=== PATIENT | female | born 1990 | race Caucasian/White ===

== ENCOUNTER 2019-12-31 11:32 | Emergency (ER) | payer OTHER, SELFPAY ==
[2019-12-31 11:39] VITALS: BP 121/78; PULSE 85; RESP 20; TEMP 36.6; O2SAT 100
--- NOTE | 2019-12-31 11:48 | ED.GENADULT ---
HPI - General Adult General Chief complaint: Upper Respiratory Infection Stated complaint: CONGESTION/COUGH Time Seen by Provider: 12/31/19 11:51 Source: patient Mode of arrival: ambulatory History of Present Illness HPI narrative: 29-year-old female patient presents to the [facility] with complaints of cold symptoms for the past 2 to 3 days. Patient states she does have a history of asthma and she has been having a frequent cough. Patient states she has been using her rescue inhaler at home. Patient states that her most bothersome symptom is the cough and the chest congestion. Patient states she is also been waking up at night coughing. Patient states she just overall is not feeling well. Patient denies any fevers, ear pain, runny nose, stuffy nose or sore throat. Patient denies any chest pain at this time. Patient denies any nausea, vomiting or diarrhea. Related Data Home Medications Medication Instructions Recorded Confirmed albuterol sulfate [Ventolin HFA] 1 puff INHALATION QID PRN 12/31/19 12/31/19 Allergies Allergy/AdvReac Type Severity Reaction Status Date / Time No Known Allergies Allergy Verified 12/31/19 11:46 Review of Systems Review of Systems: Narrative: CONSTITUTIONAL: Denies fever, chills, or sweats. EYES: Denies visual changes, redness, or discharge. ENT: Denies rhinorrhea, congestion, sore throat, or otalgia. CARDIOVASCULAR: Denies chest pain, palpitations, or edema. RESPIRATORY: Positive cough with dyspnea. GASTROINTESTINAL: Denies abdominal pain, nausea, vomiting, or diarrhea. GENITOURINARY: Denies dysuria or hematuria. SKIN: Denies rash or itching. MUSCULOSKELETAL: Denies back pain, joint pain, or myalgia. NEUROLOGIC: Denies headache, numbness, or weakness. PSYCHIATRIC: Denies anxiety or depression. [facility] Family History Family History Father Hypertension Mother Family history of allergic disorder Other Cerebrovascular accident Diabetes mellitus Family history of arthritis Family history of cardiovascular disease Family history of malignant neoplasm Social History Social History Smoking status: Former smoker Smoking end date: 11/20/16 Alcohol intake: current Comments At the time of my signature I agree with nursing past medical history, surgical, social, and family history. There is no relevant family history pertinent to the presenting complaint. Exam Narrative: Exam Narrative: GENERAL: Well-appearing, well-nourished, and in no acute distress. HEAD: Normocephalic, atraumatic. No tenderness over frontal or maxillary sinuses on palpation EYES: PERRLA and EOMI. ENT: Nares with erythema and edema noted bilaterally, no rhinorrhea or epistaxis. Mucous membranes moist. Posterior pharynx with no erythema, tonsil enlargement, exudates or lesions present. Bilateral TMs are clear with no erythema or foreign bodies in the canal. NECK: Supple. No lymphadenopathy CHEST: Clear to auscultation. No respiratory distress. Patient able to talk in clear complete sentences. HEART: Regular rate and rhythm. No murmur heard. Normal peripheral pulses. ABDOMEN: Soft, nontender, nondistended, normal active bowel sounds. EXTREMITIES: Normal range of motion. No edema. SKIN: Warm, dry, no rash. NEURO: No focal deficits. Alert and oriented x3. Course Vital Signs Vital signs: Vital Signs Temperature 36.6 C 12/31/19 11:39 Pulse Rate 85 12/31/19 11:39 Respiratory Rate 12/31/19 11:39 Blood Pressure 121/78 12/31/19 11:39 Pulse Oximetry 100 12/31/19 11:39 Temperature 36.6 C 12/31/19 11:39 Pulse Rate 85 12/31/19 11:39 Respiratory Rate 12/31/19 11:39 Blood Pressure 121/78 12/31/19 11:39 Pulse Oximetry 100 12/31/19 11:39 Vital signs reviewed. Medical Decision Making Differential Diagnosis Differential Diagnosis: Differential diagnosis: Allergi
== END 2019-12-31 12:06 | disposition home or self-care (01) ==
PROVIDERS: Emergency Provider Nurse Practitioner Family
DX: J06.9 Acute upper respiratory infection, unspecified (principal); J45.901 Unspecified asthma with (acute) exacerbation
CPT/HCPCS: 87804; 99213; G0463

== ENCOUNTER 2020-01-22 10:35 | Emergency (ER) | payer OTHER, SELFPAY ==
--- NOTE | ~2020-01-22 | CT_ITS ---
EXAMINATION: CT abdomen pelvis w con DATE: 01/22/2020 12:47 INDICATION: Abdominal pain. TECHNIQUE: Computed tomography (CT) of the abdomen and pelvis was performed with 100 mL Omnipaque 350 intravenous contrast. Automated exposure control and iterative reconstruction technique were employe d. The dose-length product was 202.45 mGy-cm. COMPARISON: None. FINDINGS: The visualized portions of the lung bases demonstrate minimal atelectasis. No pleural effus ion. The heart size is normal. No pericardial effusion. There is mild pectus excavatum. The liver and gallbladder are normal. There is an 8 mm low-attenuation mass in the spleen, likely a benign mass abel ch as granulomatous disease. The pancreas and adrenal glands are normal. There are cysts in the kidne ys measuring up to 5 mm on the left. There is cortical thinning of the kidneys. There is a 1.2 cm cys t of the vulva. There are no dilated loops of bowel. The appendix is normal. There is a supraumbilica l ventral hernia containing fat. Fat stranding may be inflammation or scarring. There are changes of umbilical hernia repair. There are no pathologically enlarged lymph nodes. There is no free intraperi toneal fluid. 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 IMPRESSION: 1. Supraumbilical ventral hernia containing fat with fat stranding that may be inflammation or scarri ng. Reviewed, dictated and finalized at location A. S SUPPORT ENGINEER IMPRESSION: 1. Supraumbilical ventral hernia containing fat with fat stranding that may be inflammation or scarring.
--- NOTE | 2020-01-22 11:05 | ED.ABDPAIN ---
HPI - Abdominal Pain General Chief Complaint: Abdominal Pain Stated Complaint: abd pain Time Seen by Provider: 01/22/20 10:51 Source: patient Mode of arrival: ambulatory Limitations: no limitations History of Present Illness HPI narrative: Patient is a 29-year-old female who presents with periumbilical abdominal pain that is moderate to severe in nature patient had coughed today when the pain occurred patient with history of hernias in the past last of which were repaired by Dr. Kathleen here a year ago. Patient notes she had had some mild increase in pain after doing some yard work this week. Patient denies fever chills nausea vomiting does not take anything for her symptoms symptoms are worse with position and activity Related Data Home Medications Medication Instructions Recorded Confirmed albuterol sulfate [Ventolin HFA] 1 puff INHALATION QID PRN 12/31/19 12/31/19 Allergies Allergy/AdvReac Type Severity Reaction Status Date / Time No Known Allergies Allergy Verified 12/31/19 11:46 Review of Systems Review of Systems: All systems reviewed & are unremarkable except as noted in HPI and below PMFSH Surgical History Surgical History H/O hernia repair Social History Social History Smoking status: Former smoker Smoking end date: 11/20/16 Alcohol intake: current Exam Narrative: Exam Narrative: GENERAL: Well-appearing, well-nourished, and in no acute distress. HEAD: Normocephalic, atraumatic. EYES: PERRLA and EOMI. ENT: Nares clear, no rhinorrhea or epistaxis. Mucous membranes moist. Oropharynx without tonsillar hypertrophy exudate or other lesions. NECK: Supple. No adenopathy or masses. CHEST: Clear to auscultation. No respiratory distress. No wheezes rales or rhonchi HEART: Regular rate and rhythm. No murmur heard. Normal peripheral pulses. ABDOMEN: Soft, hernia and periumbilical region with tenderness to palpation, nondistended EXTREMITIES: Normal range of motion. No edema. SKIN: Warm, dry, no rash. NEURO: No focal deficits. Alert and oriented x3. PSYCH: Normal mood and affect. Course Course Emergency Course: Patient in the room aware of case findings treatment plan and diagnosis agreeing to follow-up as directed or to return if symptoms worsen or concerns were Consultations Consultation #1: Patient case reviewed with general surgery who notes he will follow the patient in clinic and that the patient can be safely discharged home Date: 01/22/20 Vital Signs Vital signs: Vital Signs Temperature 98.5 F 01/22/20 11:26 Respiratory Rate 16 01/22/20 11:26 Blood Pressure 118/76 01/22/20 11:26 Pulse Oximetry 99 01/22/20 11:26 Temperature 98.5 F 01/22/20 11:26 Respiratory Rate 16 01/22/20 11:26 Blood Pressure 118/76 01/22/20 11:26 Pulse Oximetry 99 01/22/20 11:26 MDM - Abdominal Pain MDM Narrative Medical decision making narrative: Patient in the room aware of case findings treatment plan diagnosis recommendations of general surgery agreeing to follow-up in clinic as directed also provided with reasons to return Lab Data Result diagrams: 01/22/20 11:22 01/22/20 11:22 Labs: Lab Results 01/22/20 01/22/20 01/22/20 Range/Units 11:22 11:22 11:22 WBC 6.5 (4.5-10.0) K/mm3 RBC 4.80 (4.2-5.4) M/mm3 Hgb 13.8 (12.0-15.0) g/dL Hct 41.3 (37.0-47.0) % MCV 86.0 (80-100) fl MCH 28.8 (26-34) pg MCHC 33.4 (32-36) g/dl RDW 13.6 (11.5-14.5) % Plt Count 230 (150-375) k/mm3 MPV 11.2 H (7.4-10.4) fl Immature Gran % (Auto) 0.5 (0-0.5) % Neut % (Auto) 61.9 (45.5-73.1) % Lymph % (Auto) 28.9 (18.3-44.2) % [place] % (Auto) 7.8 (2.6-8.5) % Eos % (Auto) 0.6 (0-4.4) % Baso % (Auto) 0.3 (0.2-1.2) % Lymph # (Auto) 1.89 (0.9-3.2) K/mm3 Deuel # (Auto) 0.5 (0.1-0.6)
[2020-01-22 11:26] VITALS: BP 118/76; RESP 16; TEMP 36.9; O2SAT 99
[2020-01-22 11:30] LABS: Basophils Percent Auto 0.3 % (0.2-1.2); Eosinophils Percent Auto 0.6 % (0-4.4); Hematocrit 41.3 % (37.0-47.0); Hemoglobin 13.8 g/dL (12.0-15.0); Immature Granulocyte Absolute 0.03 K/mm3 (0.00-0.031); Immature Granulocyte Percent A 0.5 % (0-0.5); Lymphocytes Absolute Auto 1.89 K/mm3 (0.9-3.2); Lymphocytes Percent Auto 28.9 % (18.3-44.2); Mean Corpuscular HGB Conc 33.4 g/dl (32-36); Mean Corpuscular Hemoglobin 28.8 pg (26-34); Mean Platelet Volume 11.2 fl (7.4-10.4); Monocytes Absolute Auto 0.5 K/mm3 (0.1-0.6); Monocytes Percent Auto 7.8 % (2.6-8.5); Neutrophils Percent Auto 61.9 % (45.5-73.1); Platelet Count Result 230 k/mm3 (150-375); Red Cell Distribution Width 13.6 % (11.5-14.5); White Blood Count 6.5 K/mm3 (4.5-10.0)
[2020-01-22] MEDS: ONDANSETRON INJ 4 MG/2 ML VIAL IV PUSH (11:42)
[2020-01-22] MEDS: HYDROMORPHONE HCL 1 MG/ML INJ IV PUSH (11:43)
[2020-01-22] MEDS: SODIUM CHLORIDE 0.9% IV 1,000 ML 999 ML IV CONT (11:43)
[2020-01-22 11:44] LABS: Alanine Aminotransferase 18 U/L (4-35); Albumin Level 4.6 g/dL (3.5-5.1); Alkaline Phosphatase 54 U/L (38-126); Aspartate Amino Transferase 23 U/L (14-36); Bilirubin,Total 0.5 mg/dL (0.2-1.3); Blood Urea Nitrogen 9 mg/dL (7-17); Calcium 9.5 mg/dL (8.4-10.2); Carbon Dioxide 26 mmol/L (22-30); Chloride 105 mmol/L (98-107); Estimated Glomerular Filt Rate > 60; Glucose 88 mg/dL (65-105); Lipase 55 U/L (23-300); Sodium 138 mmol/L (137-145)
[2020-01-22 11:45] LABS: Lactic Acid Reflex 1.2 mmol/L (0.7-2.1)
[2020-01-22 11:54] LABS: Add Urine Microscopic? NO; Appearance Urine Clear (Clear); Bilirubin Urine Negative (Negative); Blood Urine Negative (Negative); Color Urine Straw (Yellow); Glucose Urine UA Negative (Negative); Ketones Urine Negative (Negative); Leukocyte Esterase Ur Negative LEU/UL (Negative); Nitrate Urine Negative (Negative); Protein Urine Negative (Negative); Specific Grav Ur 1.008 (1.001-1.035); Urobilinogen Urine Negative mg/dL (<2.0)
[2020-01-22] MEDS: MORPHINE SULFATE 4 MG/ML INJ IV PUSH (12:21)
[2020-01-22] MEDS: KETOROLAC 30 MG/ML VIAL (*BKC) IV PUSH (13:30)
[2020-01-22 14:08] VITALS: BP 118/85; PULSE 76; RESP 16; O2SAT 96
== END 2020-01-22 14:12 | disposition home or self-care (01) ==
PROVIDERS: Emergency Medicine Emergency Medical Services; Emergency Provider Emergency Medicine
DX: K43.9 Ventral hernia without obstruction or gangrene (principal)
CPT/HCPCS: 36415; 74177; 80053; 81003; 81025; 83605; 83690; 85025; 96361; 96374; 96375; 99284; J1170; J1885; J2270; J2405; J3360; J7030; Q9967

== ENCOUNTER 2020-01-28 01:10 | Day surgery (SDC) | payer OTHER, SELFPAY ==
[2020-01-27 10:57] VITALS: BMI 24.4
[2020-01-28] VITALS (9 sets, daily range): BP systolic 98–136; BP diastolic 53–79; PULSE 61–86; RESP 12–18; TEMP 36.4–36.8; O2SAT 96–100
--- NOTE | 2020-01-28 11:28 | WPDHPUPDATE1 ---
History and Physical Update Update Date/Time: 01/28/20 11:28 History and Physical has been reviewed, including an updated exam of the patient. There are NO changes in the patient's condition. Risks, benefits, and alternatives have been discussed and questions answered. Patient agrees to proceed with procedure.
[2020-01-28] MEDS: LACTATED RINGERS 1,000 ML 30 ML IV CONT ×2 (11:30→14:33)
--- NOTE | 2020-01-28 12:36 | WPDANESEPPF ---
Anes - Initial Pre Proc Eval Procedure: Operation Date: 01/28/20 13:00 Proposed Procedures p Repair Recurrent Incarcerated Ventral Hernia With Mesh - Monty Evans MD Date/Time: 01/28/20 12:36 Surgeon: Monty Evans MD Pre Op Diagnosis: Recurrent Incarcerated Ventral Hernia Patient Data Age: 29 Gender: F Height: 5 ft Weight: 56.5 kg Allergies Allergy/AdvReac Type Severity Reaction Status Date / Time No Known Allergies Allergy Verified 01/28/20 11:47 Home Medications Medication Instructions Recorded Confirmed Type albuterol sulfate [Ventolin HFA] 1 puff INHALATION QID PRN 12/31/19 01/28/20 History ibuprofen [IBU] 600 mg PO Q6H PRN #10 tablet 01/22/20 01/28/20 Rx cetirizine [Zyrtec] 10 mg PO DAILY PRN 01/27/20 01/28/20 History fluticasone propionate [Flonase 1 spray NASAL DAILY PRN 01/27/20 01/28/20 History Allergy Relief] multivitamin 1 tablet PO DAILY 01/27/20 01/28/20 History 21-iron fu-folic acid 1 tablet PO DAILY 01/27/20 01/28/20 History [ Complete] Patient hx anesthesia problems: none Family hx anesthesia problems: none PMFSH Past Medical History Medical History (Updated 01/28/20 @ 12:35 by Patel Whiting MD) Anxiety Asthma Depression Surgical History Surgical History (Updated 01/27/20 @ 09:[address] [facility]) H/O hernia repair umbilical 2018 H/O removal of cyst 4 years ago Social History Social History Smoking status: Former smoker Smoking end date: 11/20/16 Alcohol intake: current Anes - Eval Final PreProcedure Day of Procedure 01/28/20 12:36 Patient weight: normal Heart: regular rate and rhythm Lungs: clear to auscultation Airway: Mallampati scale class II Neurological: alert and oriented Last oral intake: >/= 8 hours ASA classification: II Emergent: no Anesthetic plan: proceed Anesthesia type and monitoring: general LMA and standard monitoring Informed Consent: The patient's anesthetic plan and its attendant risks and benefits were discussed with the patient/family/POA. Questions were solicited and answers provided to the satisfaction of the patient/family/POA.
[2020-01-28] MEDS: ceFAZolin 2 GM/D5W 50 ML 2 GM/50 ML BAG IVPB (13:33)
[2020-01-28] MEDS: KETOROLAC 30 MG/ML VIAL (*BKC) IV PUSH (14:01)
--- NOTE | 2020-01-28 15:03 | P.OP_ITS ---
Procedure Note - Detailed Date of procedure: 01/28/20 Pre-op diagnosis: Recurrent Incarcerated Ventral Hernia Incarcerated recurrent ventral hernia Post-op diagnosis: same Procedure performed: Repair recurrent incarcerated ventral hernia with 6.6 cm Parietex hernia mesh system Description of procedure: Patient was taken to the operating room and IV sedation was administered. Prep and drape was carried out. The proposed incision in the midline over the incarcerated hernia was marked on the skin. The incision was just above the umbilicus. Local anesthetic was infiltrated into the skin and the deeper subcutaneous tissues. Incision was made and dissection was carried down through the skin and to the hernia sac. The sac was then dissected free from the surrounding subcutaneous tissues. It was dissected down to its neck. Additional local anesthetic was infiltrated into the neck and the fascia surrounding the neck of the hernia sac. The sac was then amputated at its neck. The subcutaneous was undermined around the hernia defect. Additional local was infiltrated around the fascia. I placed a finger inside the hernia defect and checked for any abdominal wall adhesions in the area. None were found. No other hernias were noted. I did not palpate any other mesh either. A 6.6 cm Parietex chitina was chosen. It was folded and placed in the defect. Once it symmetrically covered the defect, I placed cranial and caudal transfascial sutures of 0 Ethibond. These sutures were placed in such a fashion that, when tied, they would advance the edges of the hernia defect towards 1 another. These sutures were tied and had the desired effect. I then closed the hernia defect with [id number] mattress sutures of 0 Ethibond. The repair looked quite satisfactory. I then infiltrated additional local all around the areas of the repair. The umbilical skin was tacked to the fascia with 3 0 Vicryl suture. The subcutaneous was closed with 3 0 Vicryl. Subcuticular inte rrupted 4 O Vicryl skin stitches were placed. The skin was then closed with running 4 0 Monocryl subcuticular suture. Wound was dressed with Exofin surgical adhesive. The patient was awakened and taken to recovery in good condition. Counts were correct x2. Implants: 6.6 cm Parietex hernia mesh Anesthesia: MAC and local (0.5% Marcaine with Exparel) Surgeon: Monty Evans MD Investigative Agent: Smiley Verdu ROPE MACHINE SETTER Estimated blood loss (mL): 5 Drains: No Packing: No Pathology: none sent Complications: None Condition: stable Disposition: same day Findings: 22 millimeter hernia defect oriented transversely
[2020-01-28] MEDS: ONDANSETRON INJ 4 MG/2 ML VIAL IV PUSH (15:15)
[2020-01-28] MEDS: SCOPOLAMINE 1.5 MG PATCH TRANSDERM (16:14)
== END 2020-01-28 17:05 | disposition home or self-care (01) ==
PROVIDERS: Visit Provider Surgery
PROC: 0WQF0ZZ Repair Abdominal Wall, Open Approach (ICD-10-PCS; CPT 49566; principal; 2020-01-28 13:00)
DX: K43.0 Incisional hernia with obstruction, without gangrene (principal); J45.909 Unspecified asthma, uncomplicated; F41.8 Other specified anxiety disorders; Z87.891 Personal history of nicotine dependence
CPT/HCPCS: 49566; 49568; A9270; C1781; C9290; J0690; J1100; J1200; J1885; J2250; J2405; J2704; J3010; J7120

== ENCOUNTER 2021-05-20 06:54 | Inpatient (IN) | payer OTHER, BC, SELFPAY ==
[2021-05-20] VITALS (67 sets, daily range): BP systolic 102–135; BP diastolic 57–108; PULSE 61–96; RESP 16–18; TEMP 36.4–37.1; O2SAT 95–100; BMI 26.9
[2021-05-20] MEDS: LACTATED RINGERS 1,000 ML 125 ML IV CONT ×2 (07:38→10:15)
[2021-05-20] MEDS: OXYTOCIN 30 UNITS/NS 500 ML 30 UNITS/500 ML BAG IV CONT (07:39)
--- NOTE | 2021-05-20 07:41 | PM.IMHP ---
H&P: HPI History of Present Illness Date/Time: 05/20/21 07:41 This patient is a 31-year-old 2 para 1001 at 39 weeks gestation who presents for elective induction. She did have a growth concern. She had rapid drop in her estimated weight over an 8 week. From 45th percentile to the 15th percentile. She has no complaints. She denies any loss of fluid, vaginal bleeding, contractions. She denies any nausea, vomiting, fever, chills. She denies any chest pain or shortness of breath. Chief Complaint: term Review of Systems Constitutional: Constitutional: Reports no additional constitutional complaints, Denies fatigue, Denies headache(s), Denies lethargy and Denies weakness Eyes: Eyes: Reports no additional eye complaints, Denies blurry vision and Denies photophobia ENT: Reports as per HPI, Denies headache(s) and Denies neck pain Cardiovascular: Cardiovascular: Denies chest pain, Denies diaphoresis, Denies leg edema, Denies palpitations and Denies dyspnea Respiratory: Respiratory: Denies hemoptysis, Denies dyspnea and Denies wheezing Gastrointestinal: Gastrointestinal: Denies abdominal pain, Denies melena, Denies bloating, Denies hematochezia, Denies nausea and Denies vomiting Genitourinary: Genitourinary: Reports no additional female genitourinary complaints Musculoskeletal: Musculoskeletal: Denies joint swelling, Denies neck pain, Denies numbness and Denies stiffness Neurologic: Denies Abnormal speech present, Denies confusion, Denies headache(s), Denies numbness and Denies weakness Psychiatric: Psychiatric: Denies anxiety, Denies confusion, Denies depression, Denies homicidal ideation and Denies suicidal ideation Endocrine: Endocrine: Denies fatigue and Denies palpitations Allergic/Immunologic: Allergic/Immunologic: Denies wheezing [facility] Family History Family History (Updated 04/30/21 @ 15:32 by Ephraim Ribera RN) Father Hypertension Social History Social History Substance use: never Gender identity (if verbalized by the patient): Female Spiritual care concerns: No Meds Home Medications and Allergies Home Medications Medication Instructions Recorded Confirmed Type PNV cmb#95-ferrous fumarate-FA 1 tablet PO DAILY 04/30/21 04/30/21 History [] albuterol mcg INHALATION 04/30/21 History cholecalciferol (vitamin D3) 50 mcg PO DAILY 04/30/21 04/30/21 History [Vitamin D3] Allergies Allergy/AdvReac Type Severity Reaction Status Date / Time No Known Allergies Allergy Verified 04/30/21 15:29 Vital Signs Vital Signs - 24 hr 05/20/21 07:30 Pulse Rate 92 Blood Pressure 117/88 Exam Const: General: healthy appearing, comfortable and no acute distress; No confusion Orientation/consciousness: No confusion Eyes: Direct Ophthalmoscopy: No photophobia Resp: Auscultation: clear to auscultation bilaterally, no rales, no rhonchi and no wheezes Cardio: Rate: regular rate Heart sounds: no click, no murmurs and no rubs GI: Inspection: non-distended GI Palp: No abdominal tenderness Auscultation: normal bowel sounds : Manual OB Exam: dilated 2 cm, effaced 50% and station -2 Amniotic Fluid: clear Other: A ROM-clear Neuro: General: No confusion Speech: No Abnormal speech present Extrem: General: normal to inspection, no pedal edema and no calf tenderness Assessment and Plan Assessment and plan (1) Term : Code(s): Z34.90 - Encounter for supervision of normal , unspecified, unspecified trimester Status: Acute (2) growth abnormality: Status: Acute Assessment and Plan: this patient is a 31-year-old female who presents for induction of labor at term. She has a multiple. She had a change in the growth. It slowed from 40th percentile to 15th percentile over a week. Artificial rupture of membranes was performed. She has a favorable cervix. Will begin Pitocin. External monitoring and
[2021-05-20 07:43] LABS: Basophils Percent Auto 0.2 % (0.2-1.2); Eosinophils Percent Auto 0.4 % (0-4.4); Hematocrit 37.8 % (37.0-47.0); Hemoglobin 12.3 g/dL (12.0-15.0); Immature Granulocyte Absolute 0.05 K/mm3 (0.00-0.031); Immature Granulocyte Percent A 0.6 % (0-0.5); Lymphocytes Absolute Auto 1.95 K/mm3 (0.9-3.2); Lymphocytes Percent Auto 22.9 % (18.3-44.2); Mean Corpuscular HGB Conc 32.5 g/dl (32-36); Mean Corpuscular Hemoglobin 26.9 pg (26-34); Mean Corpuscular Volume 82.7 fl (80-100); Mean Platelet Volume 11.9 fl (7.4-10.4); Monocytes Absolute Auto 0.6 K/mm3 (0.1-0.6); Neutrophils Absolute Auto 5.9 K/mm3 (1.3-6.7); Neutrophils Percent Auto 68.9 % (45.5-73.1); Platelet Count Result 209 k/mm3 (150-375); Red Blood Count 4.57 M/mm3 (4.2-5.4); Red Cell Distribution Width 14.1 % (11.5-14.5); White Blood Count 8.5 K/mm3 (4.5-10.0)
--- NOTE | 2021-05-20 07:54 | LDADM ---
This patient, Katie Qureshi, was admitted to Labor/Delivery/Recovery 109 on 05/20/21 at 06:54. Plans for labor, pain management and were discussed with patient. Patient/family oriented to hospital policies and general routines including ID bracelet, bed and alarms, visiting hours, pain management, procedures, bathroom and other care routines, personal items, smoking policy, room service/diet and guest tray routines, infant security routines, and visiting hours. Patient/Family are encouraged to report perceived risks to care and to ask questions if they do not understand what they are told or what they should do. See OBIX for further documentation.
--- NOTE | 2021-05-20 08:52 | WPDANESEPP ---
Anes - Eval Pre Procedure Procedure: labor epidural Date/Time: 05/20/21 08:52 Pre Op Diagnosis: Induction of Labor Patient Data Age: 31 Gender: F Height: 1.52 m Weight: 62.5 kg Last Vital Signs Pulse 84 05/20/21 08:30 BP 116/76 05/20/21 08:30 Allergies Allergy/AdvReac Type Severity Reaction Status Date / Time No Known Allergies Allergy Verified 04/30/21 15:29 Home Medications Medication Instructions Recorded Confirmed Type PNV cmb#95-ferrous fumarate-FA 1 tablet PO DAILY 04/30/21 04/30/21 History [] albuterol 90 mcg INHALATION PRN PRN 04/30/21 05/20/21 History cholecalciferol (vitamin D3) 50 mcg PO DAILY 04/30/21 04/30/21 History [Vitamin D3] Laboratory Tests 05/20/21 05/20/21 07:21 07:21 WBC 8.5 K/mm3 K/mm3 (4.5-10.0) RBC 4.57 M/mm3 M/mm3 (4.2-5.4) Hgb 12.3 g/dL g/dL (12.0-15.0) Hct 37.8 % % (37.0-47.0) MCV 82.7 fl fl (80-100) MCH 26.9 pg pg (26-34) MCHC 32.5 g/dl g/dl (32-36) RDW 14.1 % % (11.5-14.5) Plt Count 209 k/mm3 k/mm3 (150-375) MPV 11.9 fl H fl (7.4-10.4) Immature Gran % (Auto) 0.6 % H % (0-0.5) Neut % (Auto) 68.9 % % (45.5-73.1) Lymph % (Auto) 22.9 % % (18.3-44.2) [place] % (Auto) 7.0 % % (2.6-8.5) Eos % (Auto) 0.4 % % (0-4.4) Baso % (Auto) 0.2 % % (0.2-1.2) Lymph # (Auto) 1.95 K/mm3 K/mm3 (0.9-3.2) [place] # (Auto) 0.6 K/mm3 K/mm3 (0.1-0.6) Eos # (Auto) 0.0 K/mm3 K/mm3 (0-0.3) Baso # (Auto) 0.0 K/mm3 K/mm3 (0.0-0.1) Abs Immat Gran (auto) 0.05 K/mm3 H K/mm3 (0.00-0.031) Absolute Neuts (auto) 5.9 K/mm3 K/mm3 (1.3-6.7) Absolute Nucleated RBC 0.0 K/mm3 K/mm3 (0.0-0.012) Nucleated RBC % 0.0 % % (0.0-0.2) RPR Pending Patient hx anesthesia problems: none Family hx anesthesia problems: none PMFSH Family History Family History Father Hypertension Social History Social History Smoking status: Never smoker Substance use: never Gender identity (if verbalized by the patient): Female Spiritual care concerns: No Exam Day of Procedure 05/20/21 08:52 Patient weight: normal Heart: regular rate and rhythm Lungs: clear to auscultation Airway: Mallampati scale class II Neurological: alert and oriented
[2021-05-20 09:22] LABS: Rapid Plasma Reagin Non-Reactive (NonReactive)
--- NOTE | 2021-05-20 12:57 | PM.OBPRVD ---
OB - Delivery Note Procedure Delivery date: 05/20/21 Intrapartal events: None Induction method: AROM and per pitocin protocol Delivery monitor: external FHT and external uterine Route of delivery: Laceration Description: None Quantitative Blood Loss (ml): 150 Anesthesia type: Epidural Disposition: floor [facility] Baby Date of : 05/20/21 Time of : 12:30 Weeks of gestation at delivery: 39 Weight (pounds): 6 Weight (ounces): 9 score one minute: 9 score five minutes: 9
[2021-05-20] MEDS: OXYTOCIN 30 UNITS/NS 500 ML 30 UNITS/500 ML BAG 125 UNITS IV CONT (13:10)
[2021-05-20 15:01] LABS: Amphetamine Screen Urine Negative (Negative); Barbiturate Screen Urine Negative (Negative); Benzodiazepines Screen Urine Negative (Negative); Cannabinoid Screen Urine Negative (Negative); Cocaine Screen Urine Negative (Negative); Methadone Screen Urine Negative (Negative); Opiate Screen Urine Negative (Negative); Phencyclidine Screen Urine Negative (Negative)
--- NOTE | 2021-05-20 15:38 | PC.NURSE ---
PT arrived on unit via wheelchair accompanied by both spouse and . PT transferred to bed without difficulty. PT oriented to room 281 and surrounding area. PT introductions made and plan of care discussed per post , pain management, breast feeding, daily care activities. PT and spouse recipients of such instructions. No barriers to learning identified. PT receives instructions one to one discussion, demonstration, and mom baby care guide book. PT verbalized understanding of such instructions and welcome packet reviewed and discussed.
[2021-05-20] MEDS: DOCUSATE SODIUM 100 MG CAPSULE PO (18:01)
[2021-05-20] MEDS: LANOLIN (LANSINOH) 7.5 GM CREAM 1 APPLIC TOPICAL (18:01)
[2021-05-20] MEDS: IBUPROFEN 600 MG TABLET PO (18:01)
[2021-05-20] MEDS: ACETAMINOPHEN 325 MG TABLET 650 MG PO (23:26)
[2021-05-21 00:20] VITALS: BP 110/65; PULSE 85; RESP 16; TEMP 36.8; O2SAT 98
[2021-05-21 04:30] VITALS: BP 126/88; PULSE 74; RESP 16; TEMP 36.8; O2SAT 99
[2021-05-21] MEDS: IBUPROFEN 600 MG TABLET PO ×2 (04:50→11:42)
[2021-05-21 05:11] LABS: Hematocrit 33.1 % (37.0-47.0); Hemoglobin 10.6 g/dL (12.0-15.0)
[2021-05-21 07:00] VITALS: BP 125/78; PULSE 100; RESP 18; TEMP 36.8
--- NOTE | 2021-05-21 07:53 | P.PNOB_ITS ---
OB - PN: Subj Subjective Date/time seen: 05/21/21 07:53 Patient comments: no complaints baby status: doing well OB - PN: Obj Data Labs CBC & Chem 7: 05/21/21 04:47 Labs: Laboratory Results - last 24 hr 05/20/21 05/20/21 05/20/21 07:21 07:21 14:24 Hgb Hct Urine Opiates Screen Negative Urine Methadone Screen Negative Ur Barbiturates Screen Negative Ur Phencyclidine Scrn Negative Ur Amphetamine Screen Negative U Benzodiazepines Scrn Negative Urine Cocaine Screen Negative U Cannabinoids Screen Negative RPR Non-reactive Blood Type O Positive Antibody Screen Negative 05/21/21 04:47 Hgb 10.6 L Hct 33.1 L Urine Opiates Screen Urine Methadone Screen Ur Barbiturates Screen Ur Phencyclidine Scrn Ur Amphetamine Screen U Benzodiazepines Scrn Urine Cocaine Screen U Cannabinoids Screen RPR Blood Type Antibody Screen OB - PN A/P Plan day: 1 Plan: routine care Time Spent With Patient Time: Total time spent is greater than 50% in coordination of care (as do cumented) at patient's floor/unit and/or counseling patient: Review of Systems Review of Systems: All systems reviewed & are unremarkable except as noted in HPI and below Exam Const: General: cooperative Psych: Affect: normal affect Attitude: cooperative Thought process: Normal thought process present Thought content: Yes Normal thought content present Insight: Good insight present (Psych) Judgement: Good judgement present (Psych)
--- NOTE | 2021-05-21 08:00 | WPDANLDPN2 ---
Anes-Prog Note L&D Date/Time: 05/21/21 08:00 Comfortable throughout: labor Neuraxial method: epidural Epidural/Spinal procedure site: clean & non-tender Neuro status: Neuro function grossly intact. Cardiovascular status: normal Respiratory status: normal Airway patency: baseline Mental status: baseline Post-Op hydration status: normal Vital Signs: Last Vital Signs Temp 98.3 F 05/21/21 04:30 Pulse 74 05/21/21 04:30 Resp 16 05/21/21 04:30 BP 126/88 05/21/21 04:30 Pulse Ox 99 05/21/21 04:30 Pain score (VAS): 0 I/O: Intake & Output 05/20/21 05/21/21 05/21/21 23:59 07:59 15:59 Intake Total 500 Balance 500 Post-procedural complaints: none Patient feedback: Patient satisfied with anesthetic care.
[2021-05-21] MEDS: ACETAMINOPHEN 325 MG TABLET 650 MG PO (08:12)
[2021-05-21] MEDS: MULTIVIT/MIN/PREN/FOL AC/IRON TABLET 1 TAB PO (08:12)
--- NOTE | 2021-05-21 08:15 | PC.NURSE ---
Consulted with patient, Mother verbalizes she is able to independently latch infant with appropriate positioning/alignment. She denies any nipple discomfort, is feeding as required and waking infant to feed if needed. Reviewed infant feeding cues, frequencies, duration of feedings, feeding elimination flow sheet, and signs of adequate intake. Mother reports infant will be under bili lights. Requested mother call out for observation of feeding. Mother reports is feeding without difficulties or discomfort.
[2021-05-21 11:40] VITALS: BP 111/72; PULSE 86; RESP 18; TEMP 36.2
[2021-05-21 20:00] VITALS: BP 122/80; PULSE 88; RESP 16; TEMP 36.9; O2SAT 99
[2021-05-22] MEDS: IBUPROFEN 600 MG TABLET PO ×2 (00:14→10:06)
[2021-05-22] MEDS: ACETAMINOPHEN 325 MG TABLET 650 MG PO (04:01)
[2021-05-22 08:00] VITALS: BP 111/69; PULSE 75; RESP 18; TEMP 36.7
--- NOTE | 2021-05-22 09:30 | P.PNOB_ITS ---
OB - PN: Subj Subjective Date/time seen: 05/22/21 09:30 Patient comments: no complaints and pain well controlled baby status: doing well [place] feeding status: exclusively breast feeding OB - PN: Obj Data Labs CBC & Chem 7: 05/21/21 04:47 OB - PN A/P Plan day: 2 Plan: routine care and discharge home Time Spent With Patient Time: Total time spent is greater than 50% in coordination of care (as documented) at patient's floor/unit and/or counseling patient: Time with patient: less than 15 minutes Exam Narrative: Exam Narrative: NAD abdomen soft, nontender, fundus firm below the umbilicus Extremities nontender, 1+ edema
--- NOTE | 2021-05-22 09:34 | PM.DS ---
DS: Admitting Diagnosis Admitting Diagnosis Admitting Diagnosis: term iup DS: Discharge Diagnosis Discharge Diagnosis (1) , delivered: Code(s): O80 - Encounter for full-term uncomplicated delivery Status: Acute DS: Summary Hospital Course Reason for hospitalization: induction of labor Hospital Course: She had an uncomplicated vaginal delivery and an uncomplicated course. Status at Discharge Functional status at discharge: independent ambulation Time Spent with Patient Time attestation: Total time spent providing and/or coordinating discharge services: Exam Narrative: Exam Narrative: NAD abdomen soft, appropriately tender Ext non tender, 1+ edema Discharge Plan Discharge Attending physician on discharge: Pamela Mckeon Discharging Clinician: Pamela Mckeon Anticipated Discharge Date/Time: 05/22/21 11:00 Patient Disposition: Home, Self-Care Activity: pelvic rest Diet: regular Patient Instructions: Antibiotic Form Stand Alone Forms: General Discharge Information Follow-up/Referrals: Rich Figueroa MD [Physician] - 4 Weeks Discharge Medications: Continued PNV [id number] [] 28 mg iron- 800 mcg Tablet 1 tablet PO DAILY RF: 0 albuterol 90 mcg/actuation Aerosol 90 mcg INHALATION PRN PRN (Reason: Shortness Of Breath Or Wheezing) RF: 0 cholecalciferol (vitamin D3) [Vitamin D3] 50 mcg (2,000 unit) Tablet 50 mcg PO DAILY RF: 0 Date of admission: 05/20/21 06:54 Primary Care Provider: Marvin,Hector Noland Admitting Provider: Rich Figueroa Attending physician on admission: Rich Figueroa Condition: Stable
[2021-05-22] MEDS: MULTIVIT/MIN/PREN/FOL AC/IRON TABLET 1 TAB PO (10:06)
[2021-05-24 09:48] VITALS: BP 123/85; PULSE 93; RESP 16; TEMP 37.4; O2SAT 97
== END 2021-05-22 11:45 | disposition home or self-care (01) | DRG 807 ==
LOC: ANHLDR 07:12 → ANHOB2 05-21 09:35 → ANHLDR 05-25 12:09 → ANHOB2 05-25 12:09
PROVIDERS: Admitting Provider Obstetrics & Gynecology; PCP Internal Medicine; Visit Provider Obstetrics & Gynecology
DX: O36.5930 Maternal care for other known or suspected poor fetal growth, third trimester, not applicable or unspecified (principal); Z37.0 Single live birth; O69.81X0 Labor and delivery complicated by cord around neck, without compression, not applicable or unspecified; Z3A.39 39 weeks gestation of pregnancy; O71.82 Other specified trauma to perineum and vulva; O77.0 Labor and delivery complicated by meconium in amniotic fluid
CPT/HCPCS: 36415; 80307; 85014; 85018; 85025; 86592; 86850; 86900; 86901; A9270; J2590; J2795; J7120

== ENCOUNTER 2021-10-24 10:34 | Emergency (ER) | payer BC, SELFPAY ==
[2021-10-24 10:49] VITALS: BP 123/78; PULSE 74; RESP 16; TEMP 36.8; O2SAT 99
--- NOTE | 2021-10-24 11:05 | ED.GENADULT ---
HPI - General Adult General Chief complaint: Skin/Abscess/Foreign Body Stated complaint: ITCHY SPOT ON HAND Source: patient Mode of arrival: ambulatory Limitations: no limitations History of Present Illness HPI narrative: 31 y/o female. PMHx: None reported. Presents to [facility] w/acute complaints of pruritic rash located to her bilateral hands and forearms for the past 3 days. She reports sub-therapeutic relief to OTC topical remedies. No facial or oral involvement. No dyspnea, wheezing. No open wounds or discharge. Client tells me that she had been out shopping when she noticed the rash later that evening. No additional household or toiletry changes. No family members in home with similar issues. She is without additional acute c/o illness upon PE. Related Data Home Medications Medication Instructions Recorded Confirmed Complete 1 tablet PO DAILY 01/27/20 10/24/21 Allergies Allergy/AdvReac Type Severity Reaction Status Date / Time No Known Allergies Allergy Verified 10/24/21 10:48 Review of Systems Review of Systems: CONSTITUTIONAL: Denies fever, chills, sweats. EYES: Denies visual changes, redness, discharge. ENT: Denies rhinorrhea, congestion, sore throat, otalgia. CARDIOVASCULAR: Denies chest pain, palpitations, edema. RESPIRATORY: Denies dyspnea, wheezing, cough GASTROINTESTINAL: Denies abdominal pain, nausea, vomiting, diarrhea. GENITOURINARY: Denies dysuria, hematuria, abnormal discharge SKIN: Positive rash BUE. MUSCULOSKELETAL: Denies acute back pain, joint pain, or myalgia. NEUROLOGIC: Denies numbness, or focal weakness. PSYCHIATRIC: Denies anxiety or depression. All systems reviewed & are unremarkable except as noted in HPI and below PMFSH Past Medical History Medical History Anxiety Asthma Depression H/O cold sores Surgical History Surgical History H/O hernia repair umbilical 2017, 2019 H/O removal of cyst 4 years ago Family History Family History Father Hypertension Mother Family history of allergic disorder Grandparent Cerebrovascular accident Other Diabetes mellitus Family history of arthritis Family history of cardiovascular disease Family history of malignant neoplasm Social History Social History Smoking status: Former smoker Smoking end date: 11/20/16 Alcohol intake: current Exam Narrative: GENERAL: This is a well-nourished, well-developed adult, in no apparent distress. EARS: External ears normal, auditory canals clear and without drainage, TMs normal. NOSE: External nose normal. THROAT: Mucous membranes moist, posterior pharynx clear. No exudates. NECK: Neck supple, non-tender without lymphadenopathy, masses or thyromegaly. CARDIOVASCULAR: Regular rate and rhythm without murmurs, gallops, or rubs. RESPIRATORY: Clear to auscultation. GASTROINTESTINAL: Abdomen soft, non-tender, nondistended. SKIN: warm, intact. With fine and erythematous rash located to bilateral dorsal hands and lower forearms. No web involvement. No open wounds or discharge. No fluctuance. Surrounding tissues ingrid well. NEURO: Alert, active, and age appropriate. No focal neurologic deficits. Course Vital Signs Vital signs: Vital Signs Temperature 36.8 C 10/24/21 10:49 Pulse Rate 74 10/24/21 10:49 Respiratory Rate 16 10/24/21 10:49 Blood Pressure 123/78 10/24/21 10:49 Pulse Oximetry 99 10/24/21 10:49 Temperature 36.8 C 10/24/21 10:49 Pulse Rate 74 10/24/21 10:49 Respiratory Rate 16 10/24/21 10:49 Blood Pressure 123/78 10/24/21 10:49 Pulse Oximetry 99 10/24/21 10:49 Medical Decision Making Differential Diagnosis Differential Diagnosis: Differential Diagnosis: Consideration of
== END 2021-10-24 11:10 | disposition home or self-care (01) ==
PROVIDERS: Emergency Provider Nurse Practitioner Adult Health; PCP Internal Medicine
DX: L24.9 Irritant contact dermatitis, unspecified cause (principal); J45.909 Unspecified asthma, uncomplicated
CPT/HCPCS: 99213; G0463

== ENCOUNTER 2022-04-10 18:56 | Emergency (ER) | payer BC, SELFPAY ==
--- NOTE | 2022-04-10 18:59 | ED.URI ---
HPI - URI/Sore Throat General Chief Complaint: Upper Respiratory Infection Stated Complaint: CHEST CONGESTION Time Seen by Provider: 04/10/22 18:59 Source: patient and RN notes reviewed History of Present Illness HPI Narrative: Patient is a 32-year-old female who presents the urgent care with complaints of chest congestion and cough. Patient states she has had it for approximately 2 weeks and has not done anything [id number] for her symptoms. Patient denies of any fevers, wheezing or shortness of breath. Patient states that when she lays down at night she feels that the congestion is worse. Patient denies of any ear pain or sore throat. Denies any exposures to illness. Patient states that she is done several COVID test which have all been negative. No other acute complaints. No distress noted. Patient aware of the plan of care. Some parts of this dictation were generated by voice recognition software and may contain typographical and/or grammatical inaccuracies. Related Data Allergies Allergy/AdvReac Type Severity Reaction Status Date / Time No Known Allergies Allergy Verified 04/10/22 19:04 Review of Systems Review of Systems: CONSTITUTIONAL: Denies fever, chills, or sweats. EYES: Denies visual changes, redness, or discharge. ENT: Denies rhinorrhea, congestion, sore throat, or otalgia. CARDIOVASCULAR: Denies chest pain, palpitations, or edema. RESPIRATORY: Reports of cough and chest congestion GASTROINTESTINAL: Denies abdominal pain, nausea, vomiting, or diarrhea. GENITOURINARY: Denies dysuria or hematuria. SKIN: Denies rash or itching. MUSCULOSKELETAL: Denies back pain, joint pain, or myalgia. NEUROLOGIC: Denies headache, numbness, or weakness. All other systems reviewed are negative, except as documented in HPI. [facility] Past Medical History Medical History Anxiety Asthma Depression H/O cold sores Surgical History Surgical History H/O hernia repair umbilical 2017, 2019 H/O removal of cyst 4 years ago Family History Family History Father Hypertension Mother Family history of allergic disorder Grandparent Cerebrovascular accident Other Diabetes mellitus Family history of arthritis Family history of cardiovascular disease Family history of malignant neoplasm Social History Social History (System 02/08/22 @ 16:25 by Grace Burks) Smoking status: Never smoker Smoking end date: 11/20/16 Alcohol intake: current Substance use: never Gender identity (if verbalized by the patient): Female Spiritual care concerns: No Comments At the time of my signature, I reviewed and agree with the nursing past medical, surgical, social, and family history. There is no relevant family history pertinent to the patient complaint. Exam Narrative: GENERAL: This is a well-nourished, well-developed patient, in no apparent distress. HEAD: normocephalic, atraumatic. EYES: PERRL. Sclera clear/white. Vision is grossly intact. EARS: External ears normal, auditory canals clear and without drainage, TMs normal without perforation. Hearing grossly intact. NOSE: External nose normal with no obvious nasal discharge, nares without redness, no rhinorrhea. THROAT: Mucous membranes moist, posterior pharynx clear. Mild postnasal drainage NECK: Neck supple CARDIOVASCULAR: Regular rate and rhythm without murmurs, gallops, or rubs. RESPIRATORY: Clear to auscultation. Breath sounds equal bilaterally. No wheezes, rales, or rhonchi. SKIN: warm, intact with no suspicious lesions or rash, good texture and turgor. NEURO: awake, alert, and oriented to person, place and time. There were no obvious focal neurologic abnormalities. EXTREMITIES: No clubbing, cyanosis, or edema. Course Course Level of Care: Express Care Visit Vital Signs Vital signs: Vital
[2022-04-10 19:01] VITALS: BP 115/85; PULSE 83; RESP 12; TEMP 36.1; O2SAT 100
== END 2022-04-10 19:18 | disposition home or self-care (01) ==
PROVIDERS: Emergency Provider Nurse Practitioner Family; PCP Internal Medicine
DX: R05.9 Cough, unspecified (principal); J45.909 Unspecified asthma, uncomplicated
CPT/HCPCS: 99213; G0463

== ENCOUNTER 2022-09-12 11:39 | Emergency (ER) | payer BC, SELFPAY ==
[2022-09-12 11:47] VITALS: BP 97/67; PULSE 100; RESP 16; TEMP 36.5; O2SAT 98
--- NOTE | 2022-09-12 11:57 | ED.URI ---
HPI - URI/Sore Throat General Chief Complaint: Upper Respiratory Infection Stated Complaint: pt needs nebulizer treatment Time Seen by Provider: 09/12/22 11:52 Source: patient, RN notes reviewed and old records reviewed Mode of arrival: ambulatory Limitations: no limitations History of Present Illness HPI Narrative: 32-year-old female presents to [facility] with complaints increased allergy problems for several weeks. Patient states [facility] and has had increased symptoms with cough and wheezing noted. Patient does have history of asthma has been using her albuterol inhaler which she states is not helping. Patient denies any fevers chills or sweats, denies any body aches, has taken home COVID test which was negative. Patient has had COVID vaccinations, flu shot last year but not yet this year.. Patient is 22 weeks MD elicited complaint: cough and other (wheezing ) Pertinent past history: asthma and seasonal allergies Onset (ago): day(s) (2) Treatments prior to arrival: other (inhaler) Related Data Allergies Allergy/AdvReac Type Severity Reaction Status Date / Time No Known Allergies Allergy Verified 04/10/22 19:04 Review of Systems Review of Systems: CONSTITUTIONAL: Denies malaise, chills, sweats, or fever. EYES: Denies visual changes, redness, or discharge. ENT: Reports rhinorrhea, congestion, no sinus pain, otalgia or sore throat. CARDIOVASCULAR: Denies chest pain, palpitations, or edema. RESPIRATORY: Reports cough, some wheezing and dyspnea. GASTROINTESTINAL: Denies abdominal pain, nausea, vomiting, diarrhea SKIN: Denies rash or itching. MUSCULOSKELETAL: Denies myalgia. NEUROLOGIC: Denies headache. All systems reviewed & are unremarkable except as noted in HPI and below PMFSH Past Medical History Medical History Anxiety Asthma Depression H/O cold sores Surgical History Surgical History H/O hernia repair umbilical 2017, 2019 H/O removal of cyst 4 years ago Family History Family History Father Hypertension Mother Family history of allergic disorder Grandparent Cerebrovascular accident Other Diabetes mellitus Family history of arthritis Family history of cardiovascular disease Family history of malignant neoplasm Social History Social History (System 02/08/22 @ 16:25 by Grace Burks) Smoking status: Never smoker Smoking end date: 11/20/16 Alcohol intake: current Substance use: never Gender identity (if verbalized by the patient): Female Spiritual care concerns: No Comments At time of signature, agree with nursing past medical, surgical, social and family history. There is no relevant family history pertinent to the presenting complaint Exam Narrative: GENERAL: Well-appearing, well-nourished, and in no acute distress. HEAD: Normocephalic EYES: PERRLA, conjunctivae clear ENT: Nares clear, turbinates edematous and erythematous, clear discharge. Mucous membranes moist. TM pearly strickland with dull light reflex bilaterally; no tragal tenderness. Oropharynx erythematous without lesions. Tonsils not enlarged and without exudate, no drooling, no hoarseness, no trismus, uvula midline. NECK: Supple. No lymphadenopathy CHEST: wheezing on auscultation, breath sounds equal.scattered wheezing, no rhonchi, rales, or stridor. No respiratory distress, speaks in full sentences.SAO2 99% on room air HEART: Regular rate and rhythm. No murmur heard. SKIN: Warm, dry, no rash. NEURO: Alert and oriented x3. PSYCH: Normal mood and affect Course Course Emergency Course: Patient is aware of diagnosis, understands and agrees to treatment plan.? Anticipatory guidance given.? Patient agrees to follow-up as directed and is aware of reasons to seek care at the emergency de
[2022-09-12] MEDS: IPRATROPIUM BR 0.02% INH SOLN 0.5 MG/2.5 ML VIAL INHALATION (12:08)
[2022-09-12] MEDS: ALBUTEROL SULFATE NEB 2.5 MG/3 ML INH INHALATION (12:08)
[2022-09-12 12:30] VITALS: O2SAT 99
--- NOTE | 2022-09-12 12:32 | ED.URI ---
HPI - URI/Sore Throat General Chief Complaint: Upper Respiratory Infection Stated Complaint: pt needs nebulizer treatment Time Seen by Provider: 09/12/22 11:52 Source: patient, RN notes reviewed and old records reviewed Mode of arrival: ambulatory Limitations: no limitations History of Present Illness Treatments prior to arrival: other (inhaler) Related Data Allergies Allergy/AdvReac Type Severity Reaction Status Date / Time No Known Allergies Allergy Verified 04/10/22 19:04 [facility] Past Medical History Medical History Anxiety Asthma Depression H/O cold sores Surgical History Surgical History H/O hernia repair umbilical 2017, 2019 H/O removal of cyst 4 years ago Family History Family History Father Hypertension Mother Family history of allergic disorder Grandparent Cerebrovascular accident Other Diabetes mellitus Family history of arthritis Family history of cardiovascular disease Family history of malignant neoplasm Social History Social History (System 02/08/22 @ 16:25 by Grace Burks) Smoking status: Never smoker Smoking end date: 11/20/16 Alcohol intake: current Substance use: never Gender identity (if verbalized by the patient): Female Spiritual care concerns: No Course Vital Signs Vital signs: Vital Signs Temperature 36.5 C 09/12/22 11:47 Pulse Rate 100 09/12/22 11:47 Respiratory Rate 16 09/12/22 11:47 Blood Pressure 97/67 L 09/12/22 11:47 Pulse Oximetry 98 09/12/22 11:47 Temperature 36.5 C 09/12/22 11:47 Pulse Rate 100 09/12/22 11:47 Respiratory Rate 16 09/12/22 11:47 Blood Pressure 97/67 L 09/12/22 11:47 Pulse Oximetry 99 09/12/22 12:30 Oxygen Delivery Room Air 09/12/22 12:30 Discharge Plan Discharge Clinical Impression: Asthma exacerbation, mild Patient Disposition: Home, Self-Care Condition: Stable Instructions: Asthma (ED), Bronchospasm (ED) Additional Instructions: Increase fluids especially juices and water Bogz-tsu-[id number] cough and cold medicine of your choice for your symptoms with the pharmacist to see if safe with Zyrtec or Claritin daily Continue your inhaler/nebulizer as directed avoid respiratory irritants, tobacco smoke,bon fires, aerosols heat to the face 20-30 minutes 4-6 times a day for pain Salt water gargles, throat lozenges or throat sprays as desired If your symptoms persist, change or worsen significantly before you can contact your personal physician then please, without delay, go to the emergency department for further evaluation. Follow-up with PCP in 7-10 days or sooner if needed continue Flonase allergies spray daily Prescriptions: No Action fluticasone propionate [Flonase Allergy Relief] 50 mcg/actuation spray,suspension 2 spray NASAL DAILY Qty: 15.8 0RF Rx Instructions: administer into each nostril albuterol sulfate [Ventolin HFA] 90 mcg/actuation HFA aerosol inhaler 1 puff INHALATION QID PRN (Reason: Shortness Of Breath) Qty: 8.5 2RF Follow-up/Referrals: Marvin,Hector Noland MD [Primary Care Provider] - Time of Disposition: 12:37
== END 2022-09-12 12:44 | disposition home or self-care (01) ==
PROVIDERS: Emergency Provider Registered Nurse; PCP Internal Medicine
DX: J45.901 Unspecified asthma with (acute) exacerbation (principal)
CPT/HCPCS: 94640; 99213; G0463

== ENCOUNTER 2023-01-21 00:28 | Observation (INO) | payer BC, SELFPAY ==
[2023-01-21 03:14] VITALS: BP 118/79; PULSE 74
[2023-01-21 03:15] VITALS: BP 120/77; PULSE 83
[2023-01-21 03:30] VITALS: BP 109/77; PULSE 74
[2023-01-21 03:32] VITALS: BP 109/77; PULSE 84
[2023-01-21 03:45] VITALS: BP 100/83; PULSE 88
[2023-01-21 03:51] VITALS: BMI 27.5
--- NOTE | 2023-01-21 03:52 | OBADM ---
This patient, Katie Qureshi, admitted to the OB room Labor/Delivery/Recovery 106 for observation. Patient/family oriented to hospital policies and general routines including ID bracelet, bed and alarms, visiting hours, pain management, procedures, bathroom and other care routines, personal items, smoking policy, room service/diet, and visiting hours. Patient/Family are encouraged to report perceived risks to care and to ask questions if they do not understand what they are told or what they should do.
--- NOTE | 2023-02-15 21:06 | PM.OBTRLD ---
OB - Triage/Final Diagnosis Visit Information Comments/Additional reasons for admission: I have assessed the risk for this patient, Katie Qureshi, and determined that she would benefit from observation care. Final Diagnosis (1) False labor: Code(s): O47.9 - False labor, unspecified Status: Acute
== END 2023-01-21 03:50 | disposition home or self-care (01) ==
PROVIDERS: Admitting Provider Obstetrics & Gynecology; PCP Internal Medicine; Visit Provider Obstetrics & Gynecology
DX: O47.1 False labor at or after 37 completed weeks of gestation (principal); Z3A.40 40 weeks gestation of pregnancy
CPT/HCPCS: 59025; G0378; G0379

== ENCOUNTER 2023-01-23 06:33 | Inpatient (IN) | payer BC, SELFPAY ==
[2023-01-23] VITALS (100 sets, daily range): BP systolic 104–136; BP diastolic 32–109; PULSE 63–106; RESP 16–18; TEMP 36.6–36.8; O2SAT 95–100; BMI 27.5
--- NOTE | 2023-01-23 07:05 | LDADM ---
This patient, Katie Qureshi, was admitted to Labor/Delivery/Recovery 107 on 01/23/23 at 06:33. Plans for labor, pain management and were discussed with patient. Patient/family oriented to hospital policies and general routines including ID bracelet, bed and alarms, visiting hours, pain management, procedures, bathroom and other care routines, personal items, smoking policy, room service/diet and guest tray routines, security routines, and visiting hours. Patient/Family are encouraged to report perceived risks to care and to ask questions if they do not understand what they are told or what they should do. See OBIX for further documentation.
[2023-01-23 07:23] LABS: Basophils Percent Auto 0.5 % (0.2-1.2); Eosinophils Percent Auto 0.5 % (0-4.4); Hematocrit 38.4 % (37.0-47.0); Hemoglobin 12.7 g/dL (12.0-15.0); Immature Granulocyte Absolute 0.02 K/mm3 (0.00-0.031); Immature Granulocyte Percent A 0.3 % (0-0.5); Lymphocytes Absolute Auto 2.24 K/mm3 (0.9-3.2); Lymphocytes Percent Auto 33.6 % (18.3-44.2); Mean Corpuscular HGB Conc 33.1 g/dl (32-36); Mean Corpuscular Hemoglobin 29.7 pg (26-34); Mean Corpuscular Volume 89.9 fl (80-100); Mean Platelet Volume 12.9 fl (7.4-10.4); Monocytes Absolute Auto 0.4 K/mm3 (0.1-0.6); Monocytes Percent Auto 5.7 % (2.6-8.5); Neutrophils Percent Auto 59.4 % (45.5-73.1); Platelet Count Result 155 k/mm3 (150-375); Red Blood Count 4.27 M/mm3 (4.2-5.4); Red Cell Distribution Width 14.5 % (11.5-14.5); White Blood Count 6.7 K/mm3 (4.5-10.0)
[2023-01-23] MEDS: LACTATED RINGERS 1,000 ML 125 ML IV CONT ×2 (07:25→09:05)
[2023-01-23] MEDS: OXYTOCIN 30 UNITS/NS 500 ML 30 UNITS/500 ML BAG IV CONT (07:25)
[2023-01-23 08:13] LABS: Rapid Plasma Reagin Non-Reactive (NonReactive)
--- NOTE | 2023-01-23 08:39 | WPDHPUPDATE1 ---
History and Physical Update Update Date/Time: 01/23/23 08:39 32-year-old multiparous female presents for elective induction of labor. Artificial rupture membranes was performed. Pitocin is running. Expectant management will be continued. She has 2/50%/-2. Reassuring status. History and Physical has been reviewed, including an updated exam of the patient. There are NO changes in the patient's condition. Risks, benefits, and alternatives have been discussed and questions answered. Patient agrees to proceed with procedure.
--- NOTE | 2023-01-23 08:47 | WPDANESEPP ---
Anes - Eval Pre Procedure Procedure: labor epidural Date/Time: 01/23/23 08:47 Surgeon: sergey Preop Diagnosis: pain during labor Pre Op Diagnosis: Induction of Labor Patient Data Age: 32 Gender: F Height: 1.52 m Weight: 64 kg Last Vital Signs Pulse 71 01/23/23 08:46 BP 122/81 01/23/23 08:46 O2 Del Method Room Air 01/23/23 07:00 Allergies Allergy/AdvReac Type Severity Reaction Status Date / Time No Known Allergies Allergy Verified 01/23/23 07:10 Home Medications Medication Instructions Recorded Confirmed Type albuterol sulfate 90 mcg/actuation 1 puff inhalation QID PRN 03/25/20 01/23/23 Rx aerosol inhaler (Ventolin HFA) Shortness Of Breath #8.5 grams cholecalciferol (vitamin D3) 50 50 mcg PO DAILY 12/26/22 01/23/23 History mcg (2,000 unit) tablet (Vitamin D3) vits no.126-ferrous fum 1 tablet PO DAILY 12/26/22 01/23/23 History 28 mg iron-folic acid 800 mcg tablet (Classic ) Laboratory Tests 01/23/23 01/23/23 01/23/23 06:50 06:50 06:50 WBC 6.7 K/mm3 K/mm3 (4.5-10.0) RBC 4.27 M/mm3 M/mm3 (4.2-5.4) Hgb 12.7 g/dL g/dL (12.0-15.0) Hct 38.4 % % (37.0-47.0) MCV 89.9 fl fl (80-100) MCH 29.7 pg pg (26-34) MCHC 33.1 g/dl g/dl (32-36) RDW 14.5 % % (11.5-14.5) Plt Count 155 k/mm3 k/mm3 (150-375) MPV 12.9 fl H fl (7.4-10.4) Immature Gran % (Auto) 0.3 % % (0-0.5) Neut % (Auto) 59.4 % % (45.5-73.1) Lymph % (Auto) 33.6 % % (18.3-44.2) Ector % (Auto) 5.7 % % (2.6-8.5) Eos % (Auto) 0.5 % % (0-4.4) Baso % (Auto) 0.5 % % (0.2-1.2) Lymph # (Auto) 2.24 K/mm3 K/mm3 (0.9-3.2) Ector # (Auto) 0.4 K/mm3 K/mm3 (0.1-0.6) Eos # (Auto) 0.0 K/mm3 K/mm3 (0-0.3) Baso # (Auto) 0.0 K/mm3 K/mm3 (0.0-0.1) Abs Immat Gran (auto) 0.02 K/mm3 K/mm3 (0.00-0.031) Absolute Neuts (auto) 4.0 K/mm3 K/mm3 (1.3-6.7) Absolute Nucleated RBC 0.0 K/mm3 K/mm3 (0.0-0.012) Nucleated RBC % 0.0 % % (0.0-0.2) RPR Non-reactive (NonReactive) Blood Type O Positive Antibody Screen Negative Patient hx anesthesia problems: none Family hx anesthesia problems: none Results Review: All pre-operative results and documents have been reviewed as part of the pre-operative evaluation. [facility] Past Medical History Medical History Anxiety Asthma Depression H/O cold sores Surgical History Surgical History H/O hernia repair umbilical 2017, 2019 H/O removal of cyst 4 years ago Family History Family History (Updated 12/26/22 @ 13:27 by Nyasia Miguel, MAR) Father Hypertension Mother Family history of allergic disorder Grandparent Cerebrovascular accident Family history of malignant neoplasm Father Hypertension Other Diabetes mellitus Family history of arthritis Family history of cardiovascular disease Social History Social History (System 02/08/22 @ 16:25 by Grace Burks) Smoking status: Never smoker Smoking end date: 11/20/16 Alcohol intake: current Substance use: never Lack of Transportation: No Lack of Food: Never True Current Housing: I Have Housing Concerned About Future Housing: No Difficulty Paying Gas/Electric Bills: No Difficulty Paying for Meds: No Currently Unemployed: No Education: High School Diploma/GED Difficulty w/ Childcare or Family Care: No Gender identity (if verbalized by the patient): Female Spiritual care concerns: No Exam Day of Procedure 01/23/23 08:47
--- NOTE | 2023-01-23 12:18 | P.PCNOB_ITS ---
OB - Delivery Note Procedure Procedure: Induction method: AROM and Per Pitocin Protocol Delivery monitor: External FHT and External Uterine Route of delivery: Episiotomy description: None Laceration Description: None Quantitative Blood Loss (ml): 250 Anesthesia type: Epidural Disposition: Floor [place] Baby Date of : 01/23/23 Time of : 12:09 Weeks of gestation at delivery: 40 score one minute: 8 score five minutes: 9
[2023-01-23] MEDS: OXYTOCIN 30 UNITS/NS 500 ML 30 UNITS/500 ML BAG 125 UNITS IV CONT (12:39)
[2023-01-23] MEDS: BENZOCAINE 20% AER SPR (*SP) 56 GM CAN 1 SPRAY TOPICAL (14:06)
[2023-01-23] MEDS: WITCH HAZEL 40 PADS 1 PAD TOPICAL (14:06)
--- NOTE | 2023-01-23 15:28 | PC.NURSE ---
Patient transferred to post room #283 via wheelchair. Support person present. Oriented to unit, room, information board, rooming in, admission packet and security measures. Patient verbalizes understanding.
[2023-01-23] MEDS: IBUPROFEN 600 MG TABLET PO (17:52)
[2023-01-23] MEDS: ACETAMINOPHEN 325 MG TABLET 650 MG PO (21:34)
[2023-01-24 00:16] VITALS: BP 106/72; PULSE 87; RESP 16; TEMP 36.9; O2SAT 98
[2023-01-24] MEDS: IBUPROFEN 600 MG TABLET PO ×3 (05:00→19:47)
[2023-01-24 05:08] VITALS: BP 109/75; PULSE 72; RESP 18; TEMP 36.4; O2SAT 100
[2023-01-24 05:11] LABS: Hematocrit 37.3 % (37.0-47.0); Hemoglobin 12.4 g/dL (12.0-15.0)
[2023-01-24 08:10] VITALS: BP 114/82; PULSE 86; RESP 16; TEMP 36.4; O2SAT 99
[2023-01-24] MEDS: MULTIVIT/MIN/PREN/FOL AC/IRON TABLET 1 TAB PO (08:56)
[2023-01-24] MEDS: ACETAMINOPHEN 325 MG TABLET 650 MG PO ×2 (08:56→15:49)
[2023-01-24] MEDS: DOCUSATE SODIUM 100 MG CAPSULE PO (08:57)
--- NOTE | 2023-01-24 10:02 | PM.OBPNVD ---
OB - PN: Subj Subjective Date/time seen: 01/24/23 10:02 Patient comments: no complaints, pain well controlled, incisional pain, tolerating diet and flatus present OB - PN: Obj Data Labs 01/24/23 05:04 Labs: Laboratory Results - last 24 hr 01/24/23 05:04 Hgb 12.4 Hct 37.3 OB - PN A/P Plan day: 1 Plan: routine care Comments: No problems, routine care Time Spent With Patient Time: Total time spent is greater than 50% in coordination of care (as documented) at patient's floor/unit and/or counseling patient: Exam Const: General: comfortable, no acute distress and alert Resp: Effort & Inspection: normal respiratory effort Auscultation: no crackles, no rales and no rhonchi Cardio: Rate: regular rate Heart sounds: no click, no murmurs and no rubs GI: Inspection: non-distended GI Palp: No Tenderness to palpation present (GI) Auscultation: normal bowel sounds Other: Incision - CDI Extrem: General: normal to inspection, no pedal edema and no calf tenderness
[2023-01-24 11:42] VITALS: BP 113/75; PULSE 90; RESP 16; TEMP 36.6; O2SAT 99
--- NOTE | 2023-01-24 13:25 | WPDANLDPN2 ---
Anes-Prog Note L&D Date/Time: 01/24/23 13:25 Neuro status: Neuro function grossly intact. Vital Signs: Last Vital Signs Temp 36.6 C 01/24/23 11:42 Pulse 90 01/24/23 11:42 Resp 16 01/24/23 11:42 BP 113/75 01/24/23 11:42 Pulse Ox 99 01/24/23 11:42 O2 Del Method Room Air 01/23/23 07:00 Pain score (VAS): 0 I/O: Intake & Output 01/23/23 01/24/23 01/24/23 23:59 07:59 15:59 Intake Total 300 Balance 300 Patient feedback: Patient satisfied with anesthetic care.
--- NOTE | 2023-01-24 14:56 | PC.NURSE ---
[id number] Introductions were made, then consulted with patient to assess needs related to . Mother led the conversation with her?plans to feed?her infant and the?experience so far. Mother states she is independently without discomfort and has a history of successful . Resources provided for inpatient and outpatient services with the feeding sheet, mom/baby guide and business card. Mother voiced understanding of information and will call if there is a request for assistance.
[2023-01-24 19:52] VITALS: BP 122/77; PULSE 86; RESP 16; TEMP 36.7; O2SAT 98
[2023-01-25] MEDS: ACETAMINOPHEN 325 MG TABLET 650 MG PO (04:45)
--- NOTE | 2023-01-25 07:29 | PM.OBPNVD ---
OB - PN: Subj Subjective Date/time seen: 01/25/23 07:29 doing well, no complaints OB - PN: Obj Data Labs 01/24/23 05:04 OB - PN A/P Plan day: 2 Plan: routine care and discharge home Time Spent With Patient Time: Total time spent is greater than 50% in coordination of care (as documented) at patient's floor/unit and/or counseling patient: Review of Systems Review of Systems: All systems reviewed & are unremarkable except as noted in HPI and below Exam Const: General: cooperative and healthy appearing
--- NOTE | 2023-01-25 07:31 | PM.OBDSVD ---
DS: Admitting Diagnosis Discharge Date 01/25/23 Admitting Diagnosis labor, IOL DS: Discharge Diagnosis Discharge Diagnosis (1) Vaginal delivery: Code(s): O80 - Encounter for full-term uncomplicated delivery Status: Acute OB - DS: Summary OB Procedures : None OB Procedures Intrapartum: Spontaneous Vag Delivery OB Procedures: : None Time Spent with Patient Time attestation: Total time spent providing and/or coordinating discharge services: Discharge Plan Discharge Attending physician on discharge: Rich Figueroa Discharging Clinician: Kary Boles Patient Disposition: Home, Self-Care Activity: pelvic rest Diet: regular Patient Instructions: Antibiotic Form Stand Alone Forms: General Discharge Information Follow-up/Referrals: Rich Figueroa MD [Physician] - 4 Weeks Discharge Medications: New ibuprofen 600 mg Tablet 600 mg PO Q6H PRN (Reason: Cramping) Qty: 30 0RF Continued albuterol sulfate [Ventolin HFA] 90 mcg/actuation HFA aerosol inhaler 1 puff INHALATION QID PRN (Reason: Shortness Of Breath) Qty: 8.5 2RF cholecalciferol (vitamin D3) [Vitamin D3] 50 mcg (2,000 unit) Tablet 50 mcg PO DAILY Classic 28 mg iron- 800 mcg Tablet 1 tablet PO DAILY Date of admission: 01/23/23 06:33 Primary Care Provider: Marvin,Hector Noland Admitting Provider: Rich Figueroa Attending physician on admission: Rich Figueroa Condition: Stable
[2023-01-25 07:45] VITALS: BP 133/84; PULSE 82; RESP 18; TEMP 36.7; O2SAT 97
[2023-01-25 09:00] VITALS: PULSE 82; RESP 18; O2SAT 97
[2023-01-25] MEDS: IBUPROFEN 600 MG TABLET PO (09:00)
--- NOTE | 2023-01-25 09:03 | PC.NURSE ---
[id number] Mother led the conversation with her experience and plan to feed her so far and her ability to independently latch optimally without discomfort. Reminded parents to use good handwashing technique to prevent infection. Mother requested to see RN to discuss intake/output related to feeding more often last night which was the second 24 hour period of life of the . Mother is feeding appropriately for growth of infant and understands stimulating to eat if needed. has had appropriate feedings in the last 24 hours meets the outcomes for weight, output and jaundice at this time. Mother states she is confident to continue effectively breastfeed her infant at home, when to call for assistance and will call for the next breastfeed for an assessment of swallowing at the breast. Reinforced understanding of milk production, transition of milk, signs of adequate intake, transition of stool, prevention/relief of engorgement, responsive watching for feeding cues, the different methods of stimulating to breastfeed 2-3 hours after the start of the last feeding, community resources, medication information reviewed per [facility] and when to call a provider using the resource of the mom and baby guide/[facility] website. Mother voiced understanding of the education shared.
--- NOTE | 2023-01-25 14:52 | PC.NURSE ---
[id number] Parents requested a consult to answer questions and concerns. Parents are not sure their is getting enough swallowing while . Reviewed signs of a fed and content infant, intake/output/weight/jaundice and parents voiced understanding of education. We will work together at the next breastfeed to assess the latch. [id number] Mother demonstrated independently latch optimally without discomfort to the left breast using a cradle position. Reminded parents to use good handwashing technique to prevent infection. Mother is feeding appropriately for growth of and understands stimulating to eat if needed. has had appropriate feedings in the last 24 hours meets the outcomes for weight, output and jaundice at this time. Mother states she is confident to continue effectively breastfeed her infant at home, when to call for assistance and denies any additional assistance or education at this time. Reinforced understanding of milk production, transition of milk, signs of adequate intake, transition of stool, prevention/relief of engorgement, responsive watching for feeding cues, the different methods of stimulating to breastfeed 2-3 hours after the start of the last feeding, community resources, medication information reviewed per [facility] and when to call a provider using the resource of the mom and baby guide/[facility] website. Mother voiced understanding of the education shared. Reported to the primary RN.
[2023-01-26 10:22] VITALS: BP 116/72; PULSE 89; RESP 20; TEMP 37.1; O2SAT 100
== END 2023-01-25 13:45 | disposition home or self-care (01) | DRG 807 ==
LOC: ANHOB2 01-25 11:26 → ANHLDR 01-26 10:26
PROVIDERS: Admitting Provider Obstetrics & Gynecology; PCP Internal Medicine; Visit Provider Advanced Practice Midwife
DX: O99.52 Diseases of the respiratory system complicating childbirth (principal); Z37.0 Single live birth; J45.909 Unspecified asthma, uncomplicated; O77.0 Labor and delivery complicated by meconium in amniotic fluid; O62.3 Precipitate labor; O69.81X0 Labor and delivery complicated by cord around neck, without compression, not applicable or unspecified; Z3A.40 40 weeks gestation of pregnancy
CPT/HCPCS: 36415; 85014; 85018; 85025; 86592; 86850; 86900; 86901; A9270; J2590; J2795; J7120

== ENCOUNTER 2024-05-27 11:27 | Emergency (ER) | payer BC, SELFPAY ==
--- NOTE | 2024-05-27 11:28 | ED.LOWEXIN ---
HPI - Extremity Injury (Lower) General Chief Complaint: Extremity Injury, Lower Stated Complaint: Right Ankle Pain Time Seen by Provider: 05/27/24 12:03 Source: patient and RN notes reviewed Mode of arrival: ambulatory Limitations: no limitations History of Present Illness HPI Narrative: 34-year-old female presents with concern for right ankle pain. She reports she stepped out of her car and felt a twinge in her ankle. She denies any other injury. She reports 2 past ankle fractures. She reports some swelling. She reports that pain is worse with weight-bearing. She denies decreased strength, sensation, range of motion MD complaint: ankle injury Related Data Home Medications Medication Instructions Recorded Confirmed valacyclovir 1 gram tablet 2,000 mg PO Q12H PRN Cold Sores 05/27/24 05/27/24 (Valtrex) Allergies Allergy/AdvReac Type Severity Reaction Status Date / Time No Known Allergies Allergy Verified 05/27/24 11:33 Review of Systems Review of Systems: CONSTITUTIONAL: Denies malaise, chills, sweats, or fever. SKIN: Denies rash or itching, open skin, laceration, abrasion, redness, warmth MUSCULOSKELETAL: Reports right ankle pain and swelling NEUROLOGIC: Denies numbness, weakness All systems reviewed & are unremarkable except as noted in HPI and below PMFSH Past Medical History Medical History (Updated 05/27/24 @ 12:12 by Kate Maxwell NP) Anxiety Asthma Depression H/O cold sores Surgical History Surgical History H/O hernia repair umbilical 2017, 2019 H/O removal of cyst 4 years ago Family History Family History Father Hypertension Mother Family history of allergic disorder Grandparent Cerebrovascular accident Family history of malignant neoplasm Father Hypertension Other Diabetes mellitus Family history of arthritis Family history of cardiovascular disease Social History Social History Smoking status: Never smoker Smoking end date: 11/20/16 Alcohol intake: current Substance use: never Lack of Transportation: No Lack of Food: Never True Current Housing: I Have Housing Concerned About Future Housing: No Difficulty Paying Gas/Electric Bills: No Difficulty Paying for Meds: No Currently Unemployed: No Education: High School Diploma/GED Difficulty w/ Childcare or Family Care: No Gender identity (if verbalized by the patient): Female Spiritual care concerns: No Comments At time of signature, agree with nursing past medical, surgical, social and family history. There is no relevant family history pertinent to the presenting complaint Exam Narrative: GENERAL: Well-appearing, well-nourished, and in no acute distress. HEAD: Normocephalic, atraumatic. EYES: PERRLA, conjunctivae clear NECK: Supple. CHEST: Speaks in full sentences. No respiratory distress. HEART: Regular rate and rhythm. Normal and equal peripheral pulses. EXTREMITIES: Right ankle and digits have grossly normal strength and sensation, normal range of motion. Mild lateral edema and mild lateral ecchymosis. Normal sensation with sensitivity to light touch and pain. No point tenderness. No open wounds, no skin tenting, no devitalized tissue or atrophy, no trophic changes, no obvious deformity, alignment normal, nearby joints and structures intact. Distal pulses palpable and equal bilaterally, skin warm, dry, pink. Capillary refill less than 3 seconds. SKIN: Warm, dry, no rash. NEURO: Alert and oriented x3. PSYCH: Normal mood and affect Course Course Emergency Course: Patient is aware of diagnosis, understands and agrees to treatment plan. Anticipatory guidance given. Patient agrees to follow-up as directed and is aware of reasons to seek care at the emergency department. Portions of this record may have been
[2024-05-27 11:35] VITALS: BP 129/89; PULSE 88; RESP 15; TEMP 36.4; O2SAT 99
== END 2024-05-27 12:14 | disposition home or self-care (01) ==
PROVIDERS: Emergency Provider Nurse Practitioner; PCP Family Medicine
DX: S93.401A Sprain of unspecified ligament of right ankle, initial encounter (principal); S96.911A Strain of unspecified muscle and tendon at ankle and foot level, right foot, initial encounter; X58.XXXA Exposure to other specified factors, initial encounter; J45.909 Unspecified asthma, uncomplicated; Z87.891 Personal history of nicotine dependence
CPT/HCPCS: 73610; 99213; G0463

== ENCOUNTER 2025-03-28 14:40 | Outpatient (CLI) | payer BC, SELFPAY ==
--- NOTE | ~2025-03-28 | XR_ITS ---
XR foot LT min 3V Ordering provider: Connie Frazier PA-C History: . pain in L foot 4th 5th toes . Comparison: None. FINDINGS: BONES: Highly suggestive fracture in the midshaft of the proximal phalanx of the little toe. JOINT SPACES: Normal. No tarsal coalition. SOFT TISSUES: Normal. IMPRESSION: Highly suggestive fracture in the midshaft of the fifth toe proximal phalanx. Reviewed, dictated and finalized at location A.
== END 2025-03-28 14:41 | disposition home or self-care (01) ==
PROVIDERS: PCP Family Medicine; Visit Provider Physician Assistant Medical
DX: S99.922A Unspecified injury of left foot, initial encounter (principal); X58.XXXA Exposure to other specified factors, initial encounter; M79.675 Pain in left toe(s)
CPT/HCPCS: 73630